=== PATIENT | female | born 1990 | race African-American/Black ===

== ENCOUNTER 2017-02-18 09:03 | Emergency (ER) | payer MEDICAID ==
[~2017-02-18] VITALS: Ht 154.9 cm; Wt 75.0 kg
[2017-02-18] MEDS ORDERED: KETOROLAC 30MG/ML VIAL IM ONE (09:30)
[2017-02-18 10:11] LABS: *AMPHETAMINES SCREEN URINE NEGATIVE (NEGATIVE); *BARBITURATES SCREEN URINE NEGATIVE (NEGATIVE); *BENZODIAZEPINES SCREEN URINE NEGATIVE (NEGATIVE); *COCAINE SCREEN URINE NEGATIVE (NEGATIVE); METHADONE URINE SCREEN NEGATIVE (NEGATIVE); OPIATES URINE SCREEN NEGATIVE (NEGATIVE); PHENCYCLIDINE URINE SCREEN NEGATIVE (NEGATIVE)
[2017-02-18 10:14] LABS: CANNABINOID URINE SCREEN PRESUMTIVE POSITIVE (NEGATIVE)
[2017-02-18 12:03] VITALS: BP 120/76
== END 2017-02-18 12:05 | disposition home or self-care (01) ==
LOC: ER 09:03
DX: R51 Headache (principal); M25.562 Pain in left knee; M79.641 Pain in right hand; M25.521 Pain in right elbow; J45.909 Unspecified asthma, uncomplicated; Z98.890 Other specified postprocedural states; V03.10XA Pedestrian on foot injured in collision with car, pick-up truck or van in traffic accident, initial encounter; Y93.89 Activity, other specified; Y92.488 Other paved roadways as the place of occurrence of the external cause
CPT/HCPCS: 71010; 73080; 73130; 73562; 80305; 81025; 96372; 99285; J1885